=== PATIENT | female | born 1995 | race African-American/Black ===

== ENCOUNTER 2021-03-05 18:43 | Emergency (ER) | payer OTHER ==
[2021-03-05 18:51] VITALS: BP 136/80; PULSE 81; TEMP 97.5; BMI 37.0
[2021-03-05 19:54] LABS: BASO % 0.6 % (0-2.0); EOS % 10.7 % (0-4.5); HEMATOCRIT 35.9 % (32.4-45.2); HEMOGLOBIN 12.2 GM/dL (10.7-15.3); LYMPH % 29.8 % (8-40); MCH 29.1 pg (25.7-33.7); MEAN CELL VOLUME 85.5 fl (80-96); MEAN PLT VOLUME 6.9 fl (7.5-11.1); MONO % 7.7 % (3.8-10.2); NEUT % 51.2 % (42.8-82.8); PLATELET COUNT 362 10^3/uL (134-434); RDW 12.9 % (11.6-15.6); WHITE BLOOD COUNT 8.6 K/mm3 (4.0-10.0)
[2021-03-05 20:19] LABS: CALCIUM 8.8 mg/dL (8.5-10.1)
[2021-03-05 20:20] LABS: ALBUMIN 3.7 g/dl (3.4-5.0); BLOOD UREA NITROGEN 14.3 mg/dL (7-18); MAGNESIUM 2.2 mg/dL (1.8-2.4)
[2021-03-05 20:23] LABS: CREATININE 0.7 mg/dL (0.55-1.3)
[2021-03-05 20:24] LABS: BILIRUBIN,TOTAL 0.4 mg/dL (0.2-1); TOT PROT 8.1 g/dl (6.4-8.2)
== END 2021-03-05 20:35 | disposition home or self-care (01) ==
LOC: JERFT 18:43
DX: M62.838 Other muscle spasm (principal)
CPT/HCPCS: 36415; 80053; 82550; 83735; 85025; 99283-25